=== PATIENT | female | born 1960 | race Caucasian/White ===

== ENCOUNTER 2021-01-17 02:24 | Inpatient (IN) | payer BC, SELFPAY ==
[~2021-01-17] VITALS: Ht 160 cm; Wt 88.5 kg
[2021-01-17 02:30] VITALS: BP_SYST 133
[2021-01-17 03:41] LABS: BASOPHILS # (AUTO) 0.1 K/uL (0.0-0.2); EOSINOPHILS # (AUTO) 0.3 K/uL (0.0-0.4); EOSINOPHILS % (AUTO) 2.2 % (0.0-4.0); HEMATOCRIT 33.7 % (36-48); HEMOGLOBIN 11.3 g/dL (12.0-16.0); LYMPHOCYTES # (AUTO) 2.9 K/uL (1.0-5.5); LYMPHOCYTES % (AUTO) 24.9 % (20.5-51.5); MEAN CORPUSCULAR HEMOGLOBIN 30 pg (27-31); MEAN CORPUSCULAR HGB CONC 34 % (32-36); MEAN CORPUSCULAR VOLUME 88 fL (79.0-98.0); MONOCYTES # (AUTO) 0.7 K/uL (0.0-1.0); MONOCYTES % (AUTO) 6.1 % (1.7-9.3); NEUTROPHILS # (AUTO) 7.7 K/uL (1.8-7.7); NEUTROPHILS % (AUTO) 65.8 % (40.0-70.0); PLATELET COUNT (AUTO) 259 K/uL (130-430); RED BLOOD CELL COUNT(AUTO) 3.81 MIL/uL (4.2-6.2); RED CELL DISTRIBUTION WIDTH 13.4 % (9.0-15.0); WHITE BLOOD COUNT (AUTO) 11.6 K/uL (4.8-10.8)
[2021-01-17 03:49] LABS: CALCIUM 8.7 mg/dL (8.4-11.0); CREATININE 0.82 mg/dL (0.55-1.30); POTASSIUM 4.2 mmol/L (3.5-5.1)
[2021-01-17 03:52] LABS: PROTHROMBIN TIME 9.9 SECS (9.5-12.5)
[2021-01-17 03:54] LABS: TOTAL BILIRUBIN 0.4 mg/dL (0.0-1.0)
[2021-01-17] MEDS ORDERED: ONDANSETRON HCL 4 MG/2 ML VIAL ONE (04:25)
[2021-01-17] MEDS ORDERED: PANTOPRAZOLE SODIUM 40 MG/VIAL (PROTONIX) ONE (04:25)
[2021-01-17] MEDS ORDERED: ONDANSETRON HCL 4 MG/2 ML VIAL IVP ONE (04:30)
[2021-01-17] MEDS ORDERED: PANTOPRAZOLE SODIUM 40 MG/VIAL (PROTONIX) IVP ONE (04:30)
[2021-01-17] MEDS: NACL 0.9% 1,000 ML IV SCH ×2 (05:39→16:16)
[2021-01-17 05:58] VITALS: BP_SYST 128
[2021-01-17 07:03] LABS: HEMOGLOBIN 10.5 g/dL (12.0-16.0)
[2021-01-17 08:24] VITALS: BP_SYST 122
[2021-01-17] MEDS: ONDANSETRON HCL 4 MG/2 ML VIAL IVP PRN ×2 (09:39→20:15)
[2021-01-17 11:33] VITALS: BP_SYST 93
[2021-01-17 15:31] LABS: HEMATOCRIT 27.1 % (36-48); HEMOGLOBIN 9.4 g/dL (12.0-16.0)
[2021-01-17 15:53] VITALS: BP_SYST 112
[2021-01-17] MEDS: ACETAMINOPHEN 500 MG TABLET PO PRN (16:32)
[2021-01-17 20:00] VITALS: BP_SYST 116
[2021-01-17 22:26] LABS: HEMATOCRIT 25.7 % (36-48); HEMOGLOBIN 8.7 g/dL (12.0-16.0)
[2021-01-18 01:37] VITALS: BP_SYST 106
[2021-01-18] MEDS: NACL 0.9% 1,000 ML IV SCH ×3 (02:44→21:48)
[2021-01-18 07:46] LABS: HEMATOCRIT 25.1 % (36-48); HEMOGLOBIN 8.5 g/dL (12.0-16.0)
[2021-01-18] MEDS: ACETAMINOPHEN 500 MG TABLET PO PRN ×2 (07:48→21:52)
[2021-01-18 08:00] VITALS: BP_SYST 104
[2021-01-18 08:18] LABS: CALCIUM 8.1 mg/dL (8.4-11.0); CREATININE 0.65 mg/dL (0.55-1.30); POTASSIUM 3.8 mmol/L (3.5-5.1); THYROID STIMULATING HORMONE 2.11 uIu/mL (0.36-3.74)
[2021-01-18 12:00] VITALS: BP_SYST 114
[2021-01-18] MEDS ORDERED: GOLYTELY / COLYTE SOLUTION 4 LITERS PO ONE (16:00)
[2021-01-18 16:55] VITALS: BP_SYST 141
[2021-01-18 20:00] VITALS: BP_SYST 111
[2021-01-19] MEDS ORDERED: ZOLPIDEM TARTRATE 5 MG TABLET PO ONE
[2021-01-19] MEDS: ONDANSETRON HCL 4 MG/2 ML VIAL IVP PRN ×2 (00:07→12:51)
[2021-01-19 00:48] VITALS: BP_SYST 128
[2021-01-19] MEDS: NACL 0.9% 1,000 ML IV SCH ×2 (05:48→17:49)
[2021-01-19 07:02] LABS: BASOPHILS # (AUTO) 0.1 K/uL (0.0-0.2); BASOPHILS % (AUTO) 0.9 % (0.0-2.0); EOSINOPHILS # (AUTO) 0.3 K/uL (0.0-0.4); EOSINOPHILS % (AUTO) 2.7 % (0.0-4.0); LYMPHOCYTES # (AUTO) 3.9 K/uL (1.0-5.5); LYMPHOCYTES % (AUTO) 35.3 % (20.5-51.5); MEAN CORPUSCULAR HEMOGLOBIN 30 pg (27-31); MEAN CORPUSCULAR HGB CONC 33 % (32-36); MEAN CORPUSCULAR VOLUME 90 fL (79.0-98.0); MONOCYTES # (AUTO) 0.8 K/uL (0.0-1.0); MONOCYTES % (AUTO) 6.8 % (1.7-9.3); NEUTROPHILS # (AUTO) 6.1 K/uL (1.8-7.7); NEUTROPHILS % (AUTO) 54.3 % (40.0-70.0); PLATELET COUNT (AUTO) 200 K/uL (130-430); RED BLOOD CELL COUNT(AUTO) 2.23 MIL/uL (4.2-6.2); RED CELL DISTRIBUTION WIDTH 13.6 % (9.0-15.0); WHITE BLOOD COUNT (AUTO) 11.2 K/uL (4.8-10.8)
[2021-01-19 07:03] LABS: PROTHROMBIN TIME 10.2 SECS (9.5-12.5)
[2021-01-19 07:17] LABS: CALCIUM 7.8 mg/dL (8.4-11.0); CREATININE 0.65 mg/dL (0.55-1.30); POTASSIUM 3.2 mmol/L (3.5-5.1)
[2021-01-19 07:52] LABS: HEMOGLOBIN 6.7 g/dL (12.0-16.0)
[2021-01-19] MEDS ORDERED: MEPERIDINE 100 MG INJ. 100 MG/ML VIAL ONE (07:54)
[2021-01-19] MEDS ORDERED: MIDAZOLAM HCL 5 MG/5 ML VIAL ONE (07:54)
[2021-01-19] MEDS ORDERED: SIMETHICONE 40 MG/0.6 ML ML ONE (07:54)
[2021-01-19] MEDS ORDERED: DIPHENHYDRAMINE INJ 50 MG/ML VIAL ONE (08:47)
[2021-01-19 12:02] VITALS: BP_SYST 111
[2021-01-19] MEDS ORDERED: POTASSIUM CHLORIDE 40 MEQ, LIDOCAINE JECT 2% PF 100 MG 50 MG in NS 250 ML IV ONE (16:15)
[2021-01-19 16:37] VITALS: BP_SYST 122
[2021-01-19 19:00] VITALS: BP_SYST 110
[2021-01-19 20:00] VITALS: BP_SYST 110
[2021-01-19] MEDS: ACETAMINOPHEN 500 MG TABLET PO PRN (20:11)
[2021-01-19 20:38] LABS: HEMATOCRIT 20.4 % (36-48)
[2021-01-20] VITALS: BP_SYST 112
[2021-01-20] MEDS ORDERED: ZOLPIDEM TARTRATE 5 MG TABLET PO ONE (00:15)
[2021-01-20] MEDS: ONDANSETRON HCL 4 MG/2 ML VIAL IVP PRN ×2 (00:21→23:41)
[2021-01-20] MEDS: NACL 0.9% 1,000 ML IV SCH (03:30)
[2021-01-20 07:16] LABS: ALBUMIN 2.7 g/dL (3.4-4.8); CREATININE 0.7 mg/dL (0.55-1.30); POTASSIUM 3.4 mmol/L (3.5-5.1); TOTAL BILIRUBIN 0.5 mg/dL (0.0-1.0)
[2021-01-20 07:20] LABS: HEMATOCRIT 25.5 % (36-48); HEMOGLOBIN 8.8 g/dL (12.0-16.0)
[2021-01-20 07:50] VITALS: BP_SYST 122
[2021-01-20] MEDS ORDERED: POTASSIUM CHLORIDE 10 MEQ TAB.PRT.SR PO ONE (10:30)
[2021-01-20] MEDS ORDERED: PANTOPRAZOLE SODIUM 40 MG TAB PO ONE (11:00)
[2021-01-20] MEDS: KCL 20 mEq in 0.45% NS 1000 mL 1,000 ML IV SCH (11:24)
[2021-01-20] MEDS: ACETAMINOPHEN 500 MG TABLET PO PRN (11:25)
[2021-01-20 11:55] VITALS: BP_SYST 140
[2021-01-20 16:00] VITALS: BP_SYST 127
[2021-01-20 16:47] LABS: HEMATOCRIT 25.3 % (36-48); HEMOGLOBIN 8.8 g/dL (12.0-16.0)
[2021-01-20 20:00] VITALS: BP_SYST 130
[2021-01-20] MEDS ORDERED: ZOLPIDEM TARTRATE 5 MG TABLET PO PRN (21:30)
[2021-01-20] MEDS ORDERED: DOCUSATE SODIUM 250 MG CAPSULE PO ONE (21:45)
[2021-01-21] VITALS: BP_SYST 126
[2021-01-21] MEDS: KCL 20 mEq in 0.45% NS 1000 mL 1,000 ML IV SCH (00:04)
[2021-01-21 06:29] LABS: BASOPHILS # (AUTO) 0.1 K/uL (0.0-0.2); BASOPHILS % (AUTO) 0.9 % (0.0-2.0); EOSINOPHILS # (AUTO) 0.4 K/uL (0.0-0.4); EOSINOPHILS % (AUTO) 4.3 % (0.0-4.0); HEMATOCRIT 26.2 % (36-48); LYMPHOCYTES # (AUTO) 2.3 K/uL (1.0-5.5); MEAN CORPUSCULAR HEMOGLOBIN 31 pg (27-31); MEAN CORPUSCULAR HGB CONC 34 % (32-36); MEAN CORPUSCULAR VOLUME 89 fL (79.0-98.0); MONOCYTES # (AUTO) 0.6 K/uL (0.0-1.0); MONOCYTES % (AUTO) 6.4 % (1.7-9.3); NEUTROPHILS # (AUTO) 5.6 K/uL (1.8-7.7); NEUTROPHILS % (AUTO) 62.4 % (40.0-70.0); PLATELET COUNT (AUTO) 210 K/uL (130-430); RED BLOOD CELL COUNT(AUTO) 2.94 MIL/uL (4.2-6.2); RED CELL DISTRIBUTION WIDTH 13.8 % (9.0-15.0); WHITE BLOOD COUNT (AUTO) 8.9 K/uL (4.8-10.8)
[2021-01-21 06:38] LABS: CALCIUM 8.3 mg/dL (8.4-11.0); CREATININE 0.67 mg/dL (0.55-1.30); POTASSIUM 3.8 mmol/L (3.5-5.1)
[2021-01-21 08:00] VITALS: BP_SYST 123
[2021-01-21] MEDS: ACETAMINOPHEN 500 MG TABLET PO PRN (08:27)
[2021-01-21] MEDS ORDERED: DOCUSATE SODIUM 100 MG CAPSULE PO ONE (09:00)
[2021-01-21] MEDS ORDERED: PANTOPRAZOLE SODIUM 40 MG TAB PO SCH (09:00)
[2021-01-21 12:00] VITALS: BP_SYST 115
[2021-01-21 13:23] VITALS: BP_SYST 115
[2021-01-21] MEDS ORDERED: DOCUSATE SODIUM 100 MG CAPSULE PO SCH (21:00)
== END 2021-01-21 13:45 | disposition home or self-care (01) | DRG 393 ==
LOC: SED 02:24 → STU 04:51 → SMU 01-20 21:37
PROVIDERS: ADMIT Internal Medicine; ATTEND Internal Medicine
PROC: 0DB68ZX Excision of Stomach, Via Natural or Artificial Opening Endoscopic, Diagnostic (ICD-10-PCS; 2021-01-19)
PROC: 30233N1 Transfusion of Nonautologous Red Blood Cells into Peripheral Vein, Percutaneous Approach (ICD-10-PCS; principal; 2021-01-19 08:40)
PROC: 0DBH8ZZ Excision of Cecum, Via Natural or Artificial Opening Endoscopic (ICD-10-PCS; 2021-01-19 08:40)
DX: K64.8 Other hemorrhoids (principal); K57.91 Diverticulosis of intestine, part unspecified, without perforation or abscess with bleeding; K52.9 Noninfective gastroenteritis and colitis, unspecified; E66.9 Obesity, unspecified; K21.00 Gastro-esophageal reflux disease with esophagitis, without bleeding; K22.2 Esophageal obstruction; D50.0 Iron deficiency anemia secondary to blood loss (chronic); K29.70 Gastritis, unspecified, without bleeding; K44.9 Diaphragmatic hernia without obstruction or gangrene; Z20.822 Contact with and (suspected) exposure to COVID-19; T39.395A Adverse effect of other nonsteroidal anti-inflammatory drugs [NSAID], initial encounter; D12.0 Benign neoplasm of cecum; Z90.710 Acquired absence of both cervix and uterus; Z87.19 Personal history of other diseases of the digestive system; Z68.34 Body mass index [BMI] 34.0-34.9, adult; Z79.899 Other long term (current) drug therapy; Y92.89 Other specified places as the place of occurrence of the external cause
CPT/HCPCS: 36415; 43239; 45380; 80048; 80053; 83735; 84443; 85018; 85025; 85610-TC; 85730-TC; 86886; 86900; 86901; 86920; 87081; 88305; 93005; 96374; 96375; 99285; C9113; G0378; J1200; J2175; J2250; J2405; J3480; J7050; P9021

== ENCOUNTER 2022-09-10 17:00 | Emergency (ER) | payer BC ==
[~2022-09-10] VITALS: Ht 170.2 cm; Wt 87.1 kg
[2022-09-10 17:01] VITALS: BP_SYST 180
[2022-09-10] MEDS ORDERED: NACL 0.9% 1,000 ML IV ONE (17:15)
[2022-09-10] MEDS ORDERED: LORazepam 2 MG/ML VIAL IVP ONE (17:15)
[2022-09-10 17:43] LABS: BASOPHILS # (AUTO) 0.1 K/uL (0.0-0.2); BASOPHILS % (AUTO) 0.8 % (0.0-2.0); EOSINOPHILS % (AUTO) 0.1 % (0.0-4.0); HEMATOCRIT 44.1 % (36-48); HEMOGLOBIN 15.4 g/dL (12.0-16.0); LYMPHOCYTES # (AUTO) 1.3 K/uL (1.0-5.5); LYMPHOCYTES % (AUTO) 9.5 % (20.5-51.5); MEAN CORPUSCULAR HEMOGLOBIN 30 pg (27-31); MEAN CORPUSCULAR HGB CONC 35 % (32-36); MEAN CORPUSCULAR VOLUME 86 fL (79.0-98.0); MONOCYTES # (AUTO) 0.6 K/uL (0.0-1.0); MONOCYTES % (AUTO) 4.8 % (1.7-9.3); NEUTROPHILS # (AUTO) 11.2 K/uL (1.8-7.7); NEUTROPHILS % (AUTO) 84.8 % (40.0-70.0); PLATELET COUNT (AUTO) 271 K/uL (130-430); RED BLOOD CELL COUNT(AUTO) 5.13 MIL/uL (4.2-6.2); RED CELL DISTRIBUTION WIDTH 13.7 % (9.0-15.0); WHITE BLOOD COUNT (AUTO) 13.2 K/uL (4.8-10.8)
[2022-09-10] MEDS ORDERED: THIAMINE HCL 500 MG in NS 50 ML IV ONE (18:00)
[2022-09-10 18:04] LABS: ANION GAP 12 (5-15); CHLORIDE 99 mmol/L (98-107); CREATININE 0.58 mg/dL (0.55-1.30); GLUCOSE 121 mg/dL (70-99); UREA NITROGEN, BLOOD 8 mg/dL (8-21)
[2022-09-10 18:11] LABS: ALANINE AMINOTRANSFERASE 29 U/L (12-78); ALBUMIN 3.8 g/dL (3.4-4.8); ASPARTATE AMINOTRANSFERASE 17 U/L (10-37); TOTAL BILIRUBIN 0.4 mg/dL (0.0-1.0)
[2022-09-10 18:16] LABS: GFR AFRICAN AMERICAN 135 mL/min (>90)
[2022-09-10 21:00] VITALS: BP_SYST 150
[2022-09-10] MEDS ORDERED: NALOXONE HCL 0.4 MG/ML AMP (NARCAN) IVP PRN ×2 (21:45)
[2022-09-10] MEDS ORDERED: ONDANSETRON HCL 4 MG/2 ML VIAL IVP PRN (21:45)
[2022-09-10] MEDS ORDERED: LORazepam 2 MG/ML VIAL IVP PRN (21:45)
[2022-09-10] MEDS ORDERED: HYDROcodone/ACETAMIN 5-325 MG TAB (NORCO/ VICODIN) PO PRN (21:45)
[2022-09-10] MEDS ORDERED: HYDROcodone/ACETAMIN 10-325 MG TAB PO PRN (21:45)
[2022-09-10] MEDS ORDERED: ACETAMINOPHEN 325 MG TABLET PO PRN ×2 (21:45→22:00)
[2022-09-10] MEDS ORDERED: NORMAL SALINE 5 ML DISP.SYRIN IVF SCH ×2 (22:00)
== END 2022-09-10 21:09 | disposition admitted as inpatient to this hospital (09) ==
LOC: SED 17:00 → STU 19:17 → UNDOADMIN 19:17 → UNDODISIN 21:09 → STU 21:09
DX: G45.4 Transient global amnesia (principal); Z79.899 Other long term (current) drug therapy; Z20.822 Contact with and (suspected) exposure to COVID-19
CPT/HCPCS: 80053; 85025; 87081; 84484; 36415; 93005; 70450; 76376; 99285; 96361; 96365; 96375; 87426; J2060; J3411; J7030; G0378